=== PATIENT | male | born 1990 | race Hispanic/Latino ===

== ENCOUNTER 2020-12-25 12:29 | Emergency (ER) | payer SELFPAY ==
[2020-12-25 12:41] VITALS: BP 127/83; PULSE 82; RESP 16; TEMP 36.2; O2SAT 100
--- NOTE | 2020-12-25 12:56 | ED_ITS ---
HPI - Eye Problem General Chief complaint: Eye Problems Stated complaint: Swollen Eye Source: patient and RN notes reviewed Limitations: no limitations History of Present Illness HPI Narrative: The patient, previously mostly healthy and does not wear contact lenses/glasses, presents with eyelid discomfort. Patient states he has a shorter half week history of left lower eyelid swelling. No injury, prior episodes, photophobia, pinkeye. Symptoms are mild, worse with blinking Related Data Allergies Allergy/AdvReac Type Severity Reaction Status Date / Time No Known Allergies Allergy Verified 12/25/20 12:52 Review of Systems Review of Systems: General/Constitutional: No weight loss,fever Eyes: N0: Redness, POSSIBLE discharge Ears/Nose/Throat: No: Epistaxis,ear discharge Respiratory: Denies: Hemoptysis PMFSH Social History Social History Smoking status: Smoker, status unknown Alcohol intake: current Comments At time of signature, agree with nursing past medical, surgical, social and family history. There is no relevant family history pertinent to the presenting complaint Exam Narrative: General Appearance: Well appearing, Well nourished, No distress EYE: PERRLA ,[id number] : Left lower internal stye, EOMI ,lens normal, Normal corneas, anterior chamber deep, no Conjunctiva injection Nose: Normal nose, Nares clear Mouth/Throat: Normal appearing, Normal lips, Supple, No adenopathy Skin: Warm, Dry Neurological: A&O x3, , Normal affect Course Vital Signs Vital signs: Vital Signs Temperature 97.2 F L 12/25/20 12:41 Pulse Rate 82 12/25/20 12:41 Respiratory Rate 16 12/25/20 12:41 Blood Pressure 127/83 12/25/20 12:41 Pulse Oximetry 100 12/25/20 12:41 Temperature 97.2 F L 12/25/20 12:41 Pulse Rate 82 12/25/20 12:41 Respiratory Rate 16 12/25/20 12:41 Blood Pressure 127/83 12/25/20 12:41 Pulse Oximetry 100 12/25/20 12:41 Discharge Plan Discharge Clinical Impression: Sty Qualifiers: Laterality: left Eyelid: lower Qualified Code(s): H00.015 - Hordeolum externum left lower eyelid Patient Disposition: Home, Self-Care Condition: Stable Instructions: Quinten (ED) Additional Instructions: See eye doctor if not improved Patient Language: Turkmen Prescriptions: New sulfacetamide sodium [Bleph-10] 10 % drops 2 drp LEFT EYE Q4H Qty: 5 RF: 0 Follow-up/Referrals: PHYSICIAN,[employer] [Primary Care Provider] -
== END 2020-12-25 13:20 | disposition home or self-care (01) ==
PROVIDERS: Emergency Provider Emergency Medicine
DX: H00.015 Hordeolum externum left lower eyelid (principal)
CPT/HCPCS: 99203; G0463